=== PATIENT | male | born 1960 | race Caucasian/White ===

== ENCOUNTER 2016-02-10 10:55 | Inpatient (IN) | payer MEDICAID ==
[~2016-02-10] VITALS: Ht 170.2 cm; Wt 61.5 kg
[~2016-02-10 10:55] MED LIST: GLYCOPYRROLATE 0.2 MG/ML VIAL IV ONE; ONDANSETRON 4 MG VIAL IV PUSH ONE
[2016-02-10] MEDS ORDERED: TIOTROPIUM BROMIDE INH SCH (11:25)
[2016-02-10] MEDS: FLUTICASONE 0.05% NA BTL NARE EACH SCH (11:25)
[2016-02-10] MEDS: NEB-BUDESONIDE 0.25 MG INH SCH ×2 (11:25→17:06)
[2016-02-10] MEDS: CARVEDILOL 25 MG TAB PO SCH ×2 (11:25→21:00)
[2016-02-10] MEDS: LORATADINE 10 MG TAB PO SCH (11:25)
[2016-02-10] MEDS: ACYCLOVIR 200 MG CAP PO SCH (11:55)
[2016-02-10] MEDS: PANTOPRAZOLE 40 MG TAB PO SCH (12:07)
[2016-02-10 12:22] VITALS: BP_SYST 92; BP_SYST 94; RESP 18; TEMP 97.5
[2016-02-10 12:23] VITALS: BMI 22.1
[2016-02-10] MEDS ORDERED: PROMETHAZINE 25 MG/ML VIAL IV PRN (13:15)
[2016-02-10] MEDS ORDERED: LACTULOSE SOLN 20GM/30ML UDC PO PRN (13:15)
[2016-02-10] MEDS ORDERED: SODIUM CHLORIDE 0.9% 1,000 ML IV SCH (13:50)
[2016-02-10] MEDS: NEB-ALBUTEROL 2.5 MG/3 ML INH SCH ×3 (14:20→23:42)
[2016-02-10 14:24] VITALS: RESP 18
[2016-02-10 14:29] VITALS: BMI 22.1
[2016-02-10] MEDS: ONDANSETRON 4 MG VIAL IV PUSH PRN (14:36)
[2016-02-10 15:04] VITALS: BP_SYST 112
[2016-02-10] MEDS: NYSTATIN 500,000 UNITS/5 ML SUSP SWISH.SWAL SCH ×3 (15:05→20:40)
[2016-02-10 15:20] VITALS: BP_SYST 108; RESP 18; TEMP 97.9
[2016-02-10] MEDS: NEB-BROVANA 15 MCG/2 ML INH SCH (17:06)
[2016-02-10] MEDS ORDERED: DEXAMETHASONE 4 MG TAB PO ONE (18:40)
[2016-02-10 19:09] VITALS: BP_SYST 96; RESP 18; TEMP 97.6
[2016-02-10] MEDS: *HOME MEDS IN MED CART XX SCH (20:00)
[2016-02-10] MEDS ORDERED: **NOTE TO NURSE XX SCH (20:00)
[2016-02-10] MEDS: LIDOCAINE 2% VISC 15 ML UDC SWISH.SPIT SCH ×2 (20:38→21:00)
[2016-02-10] MEDS: Atorvastatin 20 MG TAB PO SCH (20:40)
[2016-02-11] VITALS (9 sets, daily range): BP systolic 105–165; RESP 18; TEMP 97.2–98.4
[2016-02-11] MEDS: CARVEDILOL 25 MG TAB PO SCH ×2 (04:36→20:51)
[2016-02-11] MEDS: PANTOPRAZOLE 40 MG TAB PO SCH (05:22)
[2016-02-11] MEDS: NEB-ALBUTEROL 2.5 MG/3 ML INH SCH ×4 (05:24→23:59)
[2016-02-11] MEDS: NEB-BROVANA 15 MCG/2 ML INH SCH ×2 (05:25→17:14)
[2016-02-11] MEDS: NEB-BUDESONIDE 0.25 MG INH SCH ×2 (05:25→17:14)
[2016-02-11] MEDS: SODIUM CHLORIDE 0.9% FLUSH BAG 500 ML IV SCH (06:00)
[2016-02-11] MEDS: *HOME MEDS IN MED CART XX SCH ×2 (07:43→20:00)
[2016-02-11] MEDS: TIOTROPIUM BROMIDE INH SCH (07:59)
[2016-02-11] MEDS: ACYCLOVIR 200 MG CAP PO SCH ×2 (08:25→20:51)
[2016-02-11] MEDS: LORATADINE 10 MG TAB PO SCH (08:25)
[2016-02-11] MEDS: FLUTICASONE 0.05% NA BTL NARE EACH SCH (08:26)
[2016-02-11] MEDS: LIDOCAINE 2% VISC 15 ML UDC SWISH.SPIT SCH ×4 (08:27→20:51)
[2016-02-11] MEDS: NYSTATIN 500,000 UNITS/5 ML SUSP SWISH.SWAL SCH ×4 (08:27→20:51)
[2016-02-11] MEDS: Atorvastatin 20 MG TAB PO SCH (20:51)
[2016-02-12 04:34] VITALS: BP_SYST 132; RESP 18; TEMP 97.4
[2016-02-12] MEDS: PANTOPRAZOLE 40 MG TAB PO SCH (05:13)
[2016-02-12] MEDS: NEB-ALBUTEROL 2.5 MG/3 ML INH SCH ×4 (05:58→23:47)
[2016-02-12] MEDS: NEB-BUDESONIDE 0.25 MG INH SCH ×2 (05:58→17:15)
[2016-02-12] MEDS: NEB-BROVANA 15 MCG/2 ML INH SCH ×2 (05:58→17:15)
[2016-02-12] MEDS: SODIUM CHLORIDE 0.9% FLUSH BAG 500 ML IV SCH (06:00)
[2016-02-12 07:07] VITALS: BP_SYST 155; RESP 18; TEMP 97.7
[2016-02-12] MEDS: *HOME MEDS IN MED CART XX SCH ×2 (07:16→20:00)
[2016-02-12] MEDS: ACYCLOVIR 200 MG CAP PO SCH ×2 (08:12→20:34)
[2016-02-12] MEDS: CARVEDILOL 25 MG TAB PO SCH ×2 (08:12→20:34)
[2016-02-12] MEDS: LORATADINE 10 MG TAB PO SCH (08:12)
[2016-02-12] MEDS: NYSTATIN 500,000 UNITS/5 ML SUSP SWISH.SWAL SCH ×4 (08:13→20:34)
[2016-02-12] MEDS: FLUTICASONE 0.05% NA BTL NARE EACH SCH (08:13)
[2016-02-12] MEDS: LIDOCAINE 2% VISC 15 ML UDC SWISH.SPIT SCH ×4 (08:13→20:34)
[2016-02-12] MEDS: TIOTROPIUM BROMIDE INH SCH (09:00)
[2016-02-12] MEDS: REVLIMID 25 MG PO SCH (10:12)
[2016-02-12 11:12] VITALS: BP_SYST 107; RESP 18; TEMP 97.4
[2016-02-12 11:57] VITALS: Ht 170.2 cm; Wt 61.5 kg
[2016-02-12 14:56] VITALS: BP_SYST 118; RESP 18; TEMP 97.5
[2016-02-12 19:56] VITALS: BP_SYST 139; RESP 18; TEMP 98
[2016-02-12] MEDS: Atorvastatin 20 MG TAB PO SCH (20:34)
[2016-02-12 23:53] VITALS: BP_SYST 84; RESP 18; TEMP 97.7
[2016-02-13] VITALS (10 sets, daily range): BP systolic 70–130; RESP 18; TEMP 97.4–98.3
[2016-02-13] MEDS: SODIUM CHLORIDE 0.9% FLUSH BAG 500 ML IV SCH (05:30)
[2016-02-13] MEDS: PANTOPRAZOLE 40 MG TAB PO SCH (05:33)
[2016-02-13] MEDS: NEB-ALBUTEROL 2.5 MG/3 ML INH SCH ×4 (07:59→23:33)
[2016-02-13] MEDS: NEB-BROVANA 15 MCG/2 ML INH SCH ×2 (07:59→18:38)
[2016-02-13] MEDS: NEB-BUDESONIDE 0.25 MG INH SCH ×2 (07:59→18:38)
[2016-02-13] MEDS: TIOTROPIUM BROMIDE INH SCH (08:00)
[2016-02-13] MEDS: *HOME MEDS IN MED CART XX SCH ×2 (08:40→19:55)
[2016-02-13] MEDS: REVLIMID 25 MG PO SCH (08:40)
[2016-02-13] MEDS: FLUTICASONE 0.05% NA BTL NARE EACH SCH (08:41)
[2016-02-13] MEDS: LORATADINE 10 MG TAB PO SCH (08:42)
[2016-02-13] MEDS: CARVEDILOL 25 MG TAB PO SCH ×2 (08:42→20:57)
[2016-02-13] MEDS: LIDOCAINE 2% VISC 15 ML UDC SWISH.SPIT SCH ×4 (08:43→20:58)
[2016-02-13] MEDS: ACYCLOVIR 200 MG CAP PO SCH ×2 (08:43→20:59)
[2016-02-13] MEDS: NYSTATIN 500,000 UNITS/5 ML SUSP SWISH.SWAL SCH ×4 (08:44→20:58)
[2016-02-13] MEDS: ONDANSETRON 4 MG VIAL IV PUSH PRN ×2 (13:47→22:20)
[2016-02-13] MEDS ORDERED: hePARIN 1,000 UNITS/ML (PORCINE) 10 ML ONE (17:23)
[2016-02-13] MEDS: ACETAMINOPHEN 325 MG TAB PO PRN (17:47)
[2016-02-13] MEDS: Atorvastatin 20 MG TAB PO SCH (20:57)
[2016-02-14] VITALS (7 sets, daily range): BP systolic 85–120; RESP 18; TEMP 97.3–98.1
[2016-02-14] MEDS: SODIUM CHLORIDE 0.9% FLUSH BAG 500 ML IV SCH (06:00)
[2016-02-14] MEDS: NEB-BROVANA 15 MCG/2 ML INH SCH ×2 (06:27→18:22)
[2016-02-14] MEDS: NEB-BUDESONIDE 0.25 MG INH SCH ×2 (06:27→18:22)
[2016-02-14] MEDS: NEB-ALBUTEROL 2.5 MG/3 ML INH SCH ×4 (06:27→23:45)
[2016-02-14] MEDS: TIOTROPIUM BROMIDE INH SCH (06:28)
[2016-02-14] MEDS: PANTOPRAZOLE 40 MG TAB PO SCH (06:41)
[2016-02-14] MEDS: *HOME MEDS IN MED CART XX SCH ×2 (08:00→19:53)
[2016-02-14] MEDS: ACYCLOVIR 200 MG CAP PO SCH ×2 (08:34→20:58)
[2016-02-14] MEDS: LIDOCAINE 2% VISC 15 ML UDC SWISH.SPIT SCH ×4 (08:34→21:08)
[2016-02-14] MEDS: NYSTATIN 500,000 UNITS/5 ML SUSP SWISH.SWAL SCH ×4 (08:34→20:59)
[2016-02-14] MEDS: FLUTICASONE 0.05% NA BTL NARE EACH SCH (08:34)
[2016-02-14] MEDS: LORATADINE 10 MG TAB PO SCH (08:35)
[2016-02-14] MEDS: CARVEDILOL 25 MG TAB PO SCH ×2 (08:35→20:58)
[2016-02-14] MEDS: ACETAMINOPHEN 325 MG TAB PO PRN (08:38)
[2016-02-14] MEDS: REVLIMID 25 MG PO SCH (08:38)
[2016-02-14] MEDS: Atorvastatin 20 MG TAB PO SCH (20:58)
[2016-02-15] MEDS: ACETAMINOPHEN 325 MG TAB PO PRN (03:01)
[2016-02-15 04:32] VITALS: BP_SYST 134; RESP 18; TEMP 98
[2016-02-15] MEDS: SODIUM CHLORIDE 0.9% FLUSH BAG 500 ML IV SCH (06:00)
[2016-02-15] MEDS: PANTOPRAZOLE 40 MG TAB PO SCH (06:09)
[2016-02-15] MEDS: NEB-BUDESONIDE 0.25 MG INH SCH ×2 (06:22→19:23)
[2016-02-15] MEDS: NEB-ALBUTEROL 2.5 MG/3 ML INH SCH ×4 (06:22→23:31)
[2016-02-15] MEDS: TIOTROPIUM BROMIDE INH SCH (06:22)
[2016-02-15] MEDS: NEB-BROVANA 15 MCG/2 ML INH SCH ×2 (06:22→19:23)
[2016-02-15 07:19] VITALS: BP_SYST 121; RESP 18; TEMP 97.7
[2016-02-15] MEDS: *HOME MEDS IN MED CART XX SCH ×2 (08:00→20:00)
[2016-02-15] MEDS: NYSTATIN 500,000 UNITS/5 ML SUSP SWISH.SWAL SCH ×4 (08:37→20:20)
[2016-02-15] MEDS: LIDOCAINE 2% VISC 15 ML UDC SWISH.SPIT SCH ×4 (08:39→20:20)
[2016-02-15] MEDS: ACYCLOVIR 200 MG CAP PO SCH ×3 (08:40→20:20)
[2016-02-15] MEDS: CARVEDILOL 25 MG TAB PO SCH ×2 (08:42→20:20)
[2016-02-15] MEDS: FLUTICASONE 0.05% NA BTL NARE EACH SCH (08:42)
[2016-02-15] MEDS: REVLIMID 25 MG PO SCH (08:42)
[2016-02-15] MEDS: LORATADINE 10 MG TAB PO SCH (08:42)
[2016-02-15 11:20] VITALS: BP_SYST 109; RESP 16; TEMP 97.7
[2016-02-15 15:33] VITALS: BP_SYST 128; RESP 16; TEMP 97.7
[2016-02-15 19:13] VITALS: BP_SYST 96; RESP 16; TEMP 97.6
[2016-02-15] MEDS: Atorvastatin 20 MG TAB PO SCH (20:20)
[2016-02-15 23:16] VITALS: BP_SYST 96; RESP 16; TEMP 97.9
[2016-02-16] VITALS (11 sets, daily range): BP systolic 104–156; RESP 16–18; TEMP 97.4–98.7
[2016-02-16] MEDS: ACETAMINOPHEN 325 MG TAB PO PRN ×2 (03:38→09:10)
[2016-02-16] MEDS: PANTOPRAZOLE 40 MG TAB PO SCH (04:51)
[2016-02-16] MEDS: SODIUM CHLORIDE 0.9% FLUSH BAG 500 ML IV SCH (06:00)
[2016-02-16] MEDS: NEB-ALBUTEROL 2.5 MG/3 ML INH SCH ×3 (06:30→18:38)
[2016-02-16] MEDS: NEB-BUDESONIDE 0.25 MG INH SCH ×2 (07:00→18:38)
[2016-02-16] MEDS: NEB-BROVANA 15 MCG/2 ML INH SCH ×2 (07:00→18:38)
[2016-02-16] MEDS: *HOME MEDS IN MED CART XX SCH ×2 (08:00→21:38)
[2016-02-16] MEDS: NYSTATIN 500,000 UNITS/5 ML SUSP SWISH.SWAL SCH ×5 (09:00→21:22)
[2016-02-16] MEDS: LIDOCAINE 2% VISC 15 ML UDC SWISH.SPIT SCH ×4 (09:00→21:22)
[2016-02-16] MEDS: ACYCLOVIR 200 MG CAP PO SCH ×4 (09:00→21:21)
[2016-02-16] MEDS: ONDANSETRON 4 MG VIAL IV PUSH PRN (13:56)
[2016-02-16] MEDS: REVLIMID 25 MG PO SCH (14:00)
[2016-02-16] MEDS: FLUTICASONE 0.05% NA BTL NARE EACH SCH (14:00)
[2016-02-16] MEDS: LORATADINE 10 MG TAB PO SCH (14:00)
[2016-02-16] MEDS: CARVEDILOL 25 MG TAB PO SCH ×2 (14:03→21:21)
[2016-02-16] MEDS: TIOTROPIUM BROMIDE INH SCH (16:33)
[2016-02-16] MEDS: Atorvastatin 20 MG TAB PO SCH (21:21)
[2016-02-17] VITALS (11 sets, daily range): BP systolic 103–121; RESP 16–20; TEMP 97.7–98.7
[2016-02-17] MEDS: NEB-ALBUTEROL 2.5 MG/3 ML INH SCH ×4 (00:11→18:30)
[2016-02-17] MEDS: PANTOPRAZOLE 40 MG TAB PO SCH (05:52)
[2016-02-17] MEDS: SODIUM CHLORIDE 0.9% FLUSH BAG 500 ML IV SCH (06:00)
[2016-02-17] MEDS: NEB-BROVANA 15 MCG/2 ML INH SCH ×2 (06:36→19:00)
[2016-02-17] MEDS: TIOTROPIUM BROMIDE INH SCH (06:37)
[2016-02-17] MEDS: NEB-BUDESONIDE 0.25 MG INH SCH ×2 (06:37→19:00)
[2016-02-17] MEDS: ACETAMINOPHEN 325 MG TAB PO PRN ×2 (07:19→16:56)
[2016-02-17] MEDS: *HOME MEDS IN MED CART XX SCH ×2 (07:27→20:00)
[2016-02-17] MEDS: REVLIMID 25 MG PO SCH (10:24)
[2016-02-17] MEDS: FLUTICASONE 0.05% NA BTL NARE EACH SCH (10:24)
[2016-02-17] MEDS: ACYCLOVIR 200 MG CAP PO SCH ×3 (10:24→20:21)
[2016-02-17] MEDS: LIDOCAINE 2% VISC 15 ML UDC SWISH.SPIT SCH ×4 (10:24→20:21)
[2016-02-17] MEDS: CARVEDILOL 25 MG TAB PO SCH ×2 (10:25→20:21)
[2016-02-17] MEDS: LORATADINE 10 MG TAB PO SCH (10:25)
[2016-02-17] MEDS: NYSTATIN 500,000 UNITS/5 ML SUSP SWISH.SWAL SCH (10:25)
[2016-02-17] MEDS: NEUPOGEN 480MCG VIAL SUBQ SCH (14:50)
[2016-02-17] MEDS: Atorvastatin 20 MG TAB PO SCH (20:21)
[2016-02-18] VITALS (26 sets, daily range): BP systolic 99–145; RESP 12–94; TEMP 97.4–98.8
[2016-02-18] MEDS: NEB-ALBUTEROL 2.5 MG/3 ML INH SCH ×4 (00:30→18:30)
[2016-02-18] MEDS: PANTOPRAZOLE 40 MG TAB PO SCH (06:03)
[2016-02-18] MEDS: SODIUM CHLORIDE 0.9% FLUSH BAG 500 ML IV SCH (06:03)
[2016-02-18] MEDS: NEB-BROVANA 15 MCG/2 ML INH SCH ×2 (06:23→19:00)
[2016-02-18] MEDS: TIOTROPIUM BROMIDE INH SCH (06:23)
[2016-02-18] MEDS: NEB-BUDESONIDE 0.25 MG INH SCH ×2 (06:23→19:00)
[2016-02-18] MEDS: CARVEDILOL 25 MG TAB PO SCH (07:48)
[2016-02-18] MEDS: *HOME MEDS IN MED CART XX SCH ×2 (07:48→20:00)
[2016-02-18] MEDS: LORATADINE 10 MG TAB PO SCH (07:48)
[2016-02-18] MEDS: ACYCLOVIR 200 MG CAP PO SCH ×2 (07:49→16:51)
[2016-02-18] MEDS: LIDOCAINE 2% VISC 15 ML UDC SWISH.SPIT SCH ×4 (07:49→21:00)
[2016-02-18] MEDS: FLUTICASONE 0.05% NA BTL NARE EACH SCH (09:00)
[2016-02-18] MEDS ORDERED: EPOETIN 40,000 UNIT VIAL SUBQ ONE (09:15)
[2016-02-18] MEDS: NEUPOGEN 480MCG VIAL SUBQ SCH (13:33)
[2016-02-18] MEDS ORDERED: CEFAZOLIN 1,000 MG in DEXTROSE 5% 50 ML IV ONE (13:35)
[2016-02-18] MEDS: DILAUDID 1 MG/ML AMP IV PRN (16:05)
[2016-02-18] MEDS: REVLIMID 25 MG PO SCH (16:51)
[2016-02-18] MEDS: ACETAMINOPHEN 325 MG TAB PO PRN (18:36)
[2016-02-18] MEDS ORDERED: hePARIN 1,000 UNITS/ML (PORCINE) 10 ML ONE (21:48)
[2016-02-19] VITALS (16 sets, daily range): BP systolic 85–136; RESP 18–24; TEMP 97.4–98.3
[2016-02-19] MEDS: DILAUDID 1 MG/ML AMP IV PRN ×6 (00:24→22:22)
[2016-02-19] MEDS: NEB-ALBUTEROL 2.5 MG/3 ML INH SCH ×5 (00:30→23:52)
[2016-02-19] MEDS: ACYCLOVIR 200 MG CAP PO SCH ×4 (00:37→21:06)
[2016-02-19] MEDS: CARVEDILOL 25 MG TAB PO SCH ×3 (00:37→21:06)
[2016-02-19] MEDS: Atorvastatin 20 MG TAB PO SCH ×2 (00:37→21:06)
[2016-02-19] MEDS: SODIUM CHLORIDE 0.9% FLUSH BAG 500 ML IV SCH (04:42)
[2016-02-19] MEDS: PANTOPRAZOLE 40 MG TAB PO SCH (06:19)
[2016-02-19] MEDS: *HOME MEDS IN MED CART XX SCH ×2 (07:35→19:56)
[2016-02-19] MEDS: NEB-BUDESONIDE 0.25 MG INH SCH ×2 (07:54→17:06)
[2016-02-19] MEDS: TIOTROPIUM BROMIDE INH SCH (07:54)
[2016-02-19] MEDS: NEB-BROVANA 15 MCG/2 ML INH SCH ×2 (07:54→17:05)
[2016-02-19] MEDS: FLUTICASONE 0.05% NA BTL NARE EACH SCH (08:59)
[2016-02-19] MEDS: LORATADINE 10 MG TAB PO SCH (09:00)
[2016-02-19] MEDS: REVLIMID 25 MG PO SCH (09:00)
[2016-02-19] MEDS: LIDOCAINE 2% VISC 15 ML UDC SWISH.SPIT SCH ×4 (09:00→21:10)
[2016-02-19] MEDS: ACETAMINOPHEN 325 MG TAB PO PRN ×2 (10:06→23:50)
[2016-02-19] MEDS: ONDANSETRON 4 MG VIAL IV PUSH PRN ×2 (10:29→23:03)
[2016-02-19] MEDS: NEUPOGEN 480MCG VIAL SUBQ SCH (14:05)
[2016-02-19] MEDS ORDERED: DEXAMETHASONE 4 MG TAB PO ONE (16:25)
[2016-02-19] MEDS ORDERED: LIDOCAINE TOPICAL PRN (23:40)
[2016-02-20] VITALS (25 sets, daily range): BP systolic 79–146; RESP 11–28; TEMP 97.2–98.5
[2016-02-20] MEDS ORDERED: LIDOCAINE TOPICAL PRN (01:35)
[2016-02-20] MEDS: SODIUM CHLORIDE 0.9% FLUSH BAG 500 ML IV SCH ×2 (02:06→04:43)
[2016-02-20] MEDS: DILAUDID 1 MG/ML AMP IV PRN ×4 (02:40→19:24)
[2016-02-20] MEDS: ONDANSETRON 4 MG VIAL IV PUSH PRN ×3 (03:53→18:19)
[2016-02-20] MEDS: CEFTRIAXONE 1 GM in SODIUM CHLORIDE 0.9% 50 ML IV SCH ×2 (04:05→13:37)
[2016-02-20] MEDS: PANTOPRAZOLE 40 MG TAB PO SCH (04:42)
[2016-02-20] MEDS: NEB-BROVANA 15 MCG/2 ML INH SCH ×2 (05:13→18:14)
[2016-02-20] MEDS: NEB-BUDESONIDE 0.25 MG INH SCH ×2 (05:14→18:14)
[2016-02-20] MEDS: NEB-ALBUTEROL 2.5 MG/3 ML INH SCH ×3 (05:14→18:14)
[2016-02-20] MEDS: TIOTROPIUM BROMIDE INH SCH (05:17)
[2016-02-20] MEDS: *HOME MEDS IN MED CART XX SCH ×2 (07:33→20:00)
[2016-02-20] MEDS: LIDOCAINE 2% VISC 15 ML UDC SWISH.SPIT SCH ×4 (08:06→21:00)
[2016-02-20] MEDS: FLUTICASONE 0.05% NA BTL NARE EACH SCH (08:07)
[2016-02-20] MEDS: METOCLOPRAMIDE 10 MG/2 ML VIAL IV PUSH SCH ×2 (13:02→18:28)
[2016-02-20] MEDS ORDERED: ONDANSETRON 4 MG VIAL IV PUSH PRN (13:05)
[2016-02-20] MEDS: ACYCLOVIR 200 MG CAP PO SCH ×3 (13:37→21:34)
[2016-02-20] MEDS: CARVEDILOL 25 MG TAB PO SCH ×2 (13:37→21:35)
[2016-02-20] MEDS: LORATADINE 10 MG TAB PO SCH (13:37)
[2016-02-20] MEDS: REVLIMID 25 MG PO SCH (13:37)
[2016-02-20] MEDS: NEUPOGEN 480MCG VIAL SUBQ SCH (13:48)
[2016-02-20] MEDS ORDERED: DILTIAZEM 125 MG in DEXTROSE 125 ML IV PUSH ONE (14:20)
[2016-02-20] MEDS: CARDIZEM 1 MG/ML DRIP 125 ML IV SCH (14:54)
[2016-02-20] MEDS: METOPROLOL 5 MG/5 ML VIAL IV PRN ×4 (15:45→16:03)
[2016-02-20] MEDS ORDERED: AMIODARONE 300 MG in DEXTROSE 5% 100 ML IV ONE (16:00)
[2016-02-20] MEDS: AMIODARONE 450 MG in DEXTROSE 5% AVIVA 250 ML IV SCH (17:31)
[2016-02-20] MEDS ORDERED: DILAUDID 1 MG/ML AMP IV ONE (20:11)
[2016-02-20] MEDS: Atorvastatin 20 MG TAB PO SCH (21:35)
[2016-02-21] VITALS (59 sets, daily range): BP systolic 74–143; RESP 5–26; TEMP 97.5–98.7
[2016-02-21] MEDS: NEB-ALBUTEROL 2.5 MG/3 ML INH SCH ×5 (00:28→23:37)
[2016-02-21] MEDS: DILAUDID 1 MG/ML AMP IV PRN ×5 (01:05→18:47)
[2016-02-21] MEDS: AMIODARONE 450 MG in DEXTROSE 5% AVIVA 250 ML IV SCH (03:03)
[2016-02-21] MEDS: ACETAMINOPHEN 325 MG TAB PO PRN (03:07)
[2016-02-21] MEDS: SODIUM CHLORIDE 0.9% FLUSH BAG 500 ML IV SCH (06:00)
[2016-02-21] MEDS ORDERED: KCL CR 20 MEQ TAB PO ONE (06:45)
[2016-02-21] MEDS: METOCLOPRAMIDE 10 MG/2 ML VIAL IV PUSH SCH ×3 (07:00→16:00)
[2016-02-21] MEDS: NEB-BROVANA 15 MCG/2 ML INH SCH ×2 (07:09→18:31)
[2016-02-21] MEDS: NEB-BUDESONIDE 0.25 MG INH SCH ×2 (07:09→18:31)
[2016-02-21] MEDS ORDERED: MISSING DOSE XX ONE ×4 (07:55→20:00)
[2016-02-21] MEDS ORDERED: SODIUM CHLORIDE 0.9% 250 ML IV ONE (08:20)
[2016-02-21] MEDS ORDERED: DEXTROSE 5% SALINE 0.9% 1,000 ML IV SCH (08:20)
[2016-02-21] MEDS: CARVEDILOL 25 MG TAB PO SCH ×2 (09:00→20:14)
[2016-02-21] MEDS: LIDOCAINE 2% VISC 15 ML UDC SWISH.SPIT SCH ×4 (09:08→20:14)
[2016-02-21] MEDS: PANTOPRAZOLE 40 MG TAB PO SCH (09:08)
[2016-02-21] MEDS: FLUTICASONE 0.05% NA BTL NARE EACH SCH (09:08)
[2016-02-21] MEDS: LORATADINE 10 MG TAB PO SCH (09:08)
[2016-02-21] MEDS: REVLIMID 25 MG PO SCH (09:09)
[2016-02-21] MEDS: *HOME MEDS IN MED CART XX SCH ×2 (09:09→19:23)
[2016-02-21] MEDS: CEFTRIAXONE 1 GM in SODIUM CHLORIDE 0.9% 50 ML IV SCH (09:11)
[2016-02-21] MEDS: ACYCLOVIR 200 MG CAP PO SCH ×3 (09:12→20:14)
[2016-02-21] MEDS: CARDIZEM 1 MG/ML DRIP 125 ML IV SCH (10:02)
[2016-02-21] MEDS: TIOTROPIUM BROMIDE INH SCH (11:35)
[2016-02-21] MEDS: NEUPOGEN 480MCG VIAL SUBQ SCH (14:08)
[2016-02-21] MEDS: ONDANSETRON 4 MG VIAL IV PUSH PRN (15:34)
[2016-02-21] MEDS: AMIODARONE 200 MG TAB PO SCH (20:14)
[2016-02-22] VITALS (27 sets, daily range): BP systolic 70–108; RESP 10–30; TEMP 97–98
[2016-02-22] MEDS: DILAUDID 1 MG/ML AMP IV PRN ×5 (01:19→21:43)
[2016-02-22] MEDS: ONDANSETRON 4 MG VIAL IV PUSH PRN (01:30)
[2016-02-22] MEDS: SODIUM CHLORIDE 0.9% FLUSH BAG 500 ML IV SCH (04:53)
[2016-02-22] MEDS: NEB-BUDESONIDE 0.25 MG INH SCH ×2 (06:28→17:25)
[2016-02-22] MEDS: NEB-BROVANA 15 MCG/2 ML INH SCH ×2 (06:28→17:25)
[2016-02-22] MEDS: TIOTROPIUM BROMIDE INH SCH (06:28)
[2016-02-22] MEDS: NEB-ALBUTEROL 2.5 MG/3 ML INH SCH ×4 (06:28→22:43)
[2016-02-22] MEDS: METOCLOPRAMIDE 10 MG/2 ML VIAL IV PUSH SCH ×3 (07:26→15:48)
[2016-02-22] MEDS: *HOME MEDS IN MED CART XX SCH ×2 (07:27→20:00)
[2016-02-22] MEDS: PANTOPRAZOLE 40 MG TAB PO SCH (07:27)
[2016-02-22] MEDS ORDERED: DEXTROSE 5% SALINE 0.9% 1,000 ML IV SCH (08:20)
[2016-02-22] MEDS: LORATADINE 10 MG TAB PO SCH (09:00)
[2016-02-22] MEDS: REVLIMID 25 MG PO SCH (09:00)
[2016-02-22] MEDS: ACYCLOVIR 200 MG CAP PO SCH ×3 (09:00→21:42)
[2016-02-22] MEDS: CARVEDILOL 25 MG TAB PO SCH ×2 (09:00→21:00)
[2016-02-22] MEDS: CEFTRIAXONE 1 GM in SODIUM CHLORIDE 0.9% 50 ML IV SCH (09:33)
[2016-02-22] MEDS: OMNIPAQUE 240 MG/ML, 50 ML PO SCH ×2 (09:33→11:33)
[2016-02-22] MEDS: LIDOCAINE 2% VISC 15 ML UDC SWISH.SPIT SCH ×4 (09:34→21:42)
[2016-02-22] MEDS: FLUTICASONE 0.05% NA BTL NARE EACH SCH (09:35)
[2016-02-22] MEDS: AMIODARONE 200 MG TAB PO SCH ×2 (09:40→21:42)
[2016-02-22] MEDS: NEUPOGEN 480MCG VIAL SUBQ SCH (11:32)
[2016-02-22] MEDS: ACETAMINOPHEN 325 MG TAB PO PRN ×3 (16:54→23:49)
[2016-02-23] VITALS (38 sets, daily range): BP systolic 0–186; RESP 0–36; TEMP 97.5–98.7
[2016-02-23] MEDS: DILAUDID 1 MG/ML AMP IV PRN (01:58)
[2016-02-23] MEDS: SODIUM CHLORIDE 0.9% FLUSH BAG 500 ML IV SCH (05:29)
[2016-02-23] MEDS: PANTOPRAZOLE 40 MG TAB PO SCH (06:24)
[2016-02-23] MEDS: METOCLOPRAMIDE 10 MG/2 ML VIAL IV PUSH SCH (06:24)
[2016-02-23] MEDS ORDERED: VANCOMYCIN 1,500 MG in SODIUM CHLORIDE 0.9% 250 ML IV ONE (07:25)
[2016-02-23] MEDS: NEB-BROVANA 15 MCG/2 ML INH SCH (07:33)
[2016-02-23] MEDS: NEB-ALBUTEROL 2.5 MG/3 ML INH SCH ×2 (07:33→10:58)
[2016-02-23] MEDS: NEB-BUDESONIDE 0.25 MG INH SCH (07:33)
[2016-02-23] MEDS: TIOTROPIUM BROMIDE INH SCH (07:34)
[2016-02-23] MEDS ORDERED: PIPERACIL/TAZO 2.25GM/50ML 50 ML IV SCH (08:00)
[2016-02-23] MEDS ORDERED: CEFTRIAXONE 1 GM in SODIUM CHLORIDE 0.9% 50 ML IV SCH (09:00)
[2016-02-23] MEDS ORDERED: PHARMACY TO DOSE BACTRIM IV IV SCH (09:20)
[2016-02-23] MEDS ORDERED: DEXTROSE 5% IV SCH ×2 (10:00→16:00)
[2016-02-23] MEDS ORDERED: TRIMETH IV SCH ×2 (10:00→16:00)
[2016-02-23] MEDS ORDERED: SULFAMETH IV SCH ×2 (10:00→16:00)
[2016-02-23] MEDS ORDERED: DOPamine PREMIX 250 ML IV PRN (11:00)
[2016-02-23] MEDS ORDERED: DOPamine PREMIX 250 ML IV SCH (11:30)
== END 2016-02-23 12:34 | disposition expired | DRG 682 ==
LOC: ENRESERVDT → ENRESERVTM → 4NT 11:53 → 4THW 02-20 15:43 → ICU 02-20 16:58
PROVIDERS: ADMIT Internal Medicine; ATTEND Internal Medicine
PROC: 5A1D60Z (ICD-10-PCS; principal; 2016-02-11)
PROC: 0DH63UZ Insertion of Feeding Device into Stomach, Percutaneous Approach (ICD-10-PCS; 2016-02-18)
PROC: 5A1935Z Respiratory Ventilation, Less than 24 Consecutive Hours (ICD-10-PCS; 2016-02-23)
PROC: 0BH17EZ Insertion of Endotracheal Airway into Trachea, Via Natural or Artificial Opening (ICD-10-PCS; 2016-02-23)
DX: N17.9 Acute kidney failure, unspecified (principal); J18.9 Pneumonia, unspecified organism; J96.90 Respiratory failure, unspecified, unspecified whether with hypoxia or hypercapnia; D61.810 Antineoplastic chemotherapy induced pancytopenia; E87.4 Mixed disorder of acid-base balance; J44.0 Chronic obstructive pulmonary disease with (acute) lower respiratory infection; C90.00 Multiple myeloma not having achieved remission; I11.0 Hypertensive heart disease with heart failure; J44.1 Chronic obstructive pulmonary disease with (acute) exacerbation; I48.92 Unspecified atrial flutter; E44.0 Moderate protein-calorie malnutrition; I47.1 Supraventricular tachycardia; E87.1 Hypo-osmolality and hyponatremia; K56.7 Ileus, unspecified; Z87.01 Personal history of pneumonia (recurrent); I50.9 Heart failure, unspecified; E78.00 Pure hypercholesterolemia, unspecified; F41.9 Anxiety disorder, unspecified; F32.9 Major depressive disorder, single episode, unspecified; I95.9 Hypotension, unspecified; K12.30 Oral mucositis (ulcerative), unspecified; R63.0 Anorexia; Z68.22 Body mass index [BMI] 22.0-22.9, adult; R13.12 Dysphagia, oropharyngeal phase; Z79.01 Long term (current) use of anticoagulants; I48.0 Paroxysmal atrial fibrillation; E87.6 Hypokalemia; Z86.711 Personal history of pulmonary embolism; Z87.891 Personal history of nicotine dependence
CPT/HCPCS: 36430; 36600; 71010; 71020; 74176; 80048; 80053; 82728; 82803; 82947; 83540; 83735; 84132; 84466; 85007; 85014; 85018; 85025; 85027; 85610; 85730; 86738; 86850; 86900; 86901; 86923; 86927; 86945; 87071; 87077; 87181; 87186; 87205; 87493; 93005; 94002; 94640; 94799